=== PATIENT | female | born 1985 | race African-American/Black ===

== ENCOUNTER 2017-08-21 18:21 | Emergency (ER) | payer MEDICAID ==
[~2017-08-21] VITALS: Ht 149.9 cm; Wt 75.0 kg
[2017-08-21 18:43] VITALS: TEMP 97.9
[2017-08-21] MEDS ORDERED: KEPPRA250 MG PO (18:57)
[2017-08-21] MEDS ORDERED: LIPITOR 40MG TA40 MG PO (18:57)
[2017-08-21] MEDS ORDERED: PEPCID 20MG TAB20 MG PO (18:58)
[2017-08-21] MEDS ORDERED: TOPROL XL 50MG50 MG PO (18:59)
[2017-08-21 19:42] LABS: BASO % 0.4 % (0.0-2.0); EOS # 0.1 (0.0-0.7); EOS % 1.2 % (0-4.0); GRAN # 4.3 (1.4-6.5); GRAN % 64.7 % (42.2-75.2); LYMPH # 1.7 (1.2-3.4); LYMPH % 25.3 % (20.0-51.0); MEAN CELL VOLUME 79 fl (80.0-100.0); MEAN CORPUSCULAR HGB CONC 31 g/dl (33.0-37.0); MEAN PLATELET VOLUME 10.3 fl (7.4-10.4); MONO # 0.6 (0.1-0.6); MONO % 8.3 % (1.7-9.3); PLATELET COUNT 188 K/mm3 (130-400); RED BLOOD COUNT 3.93 M/mm3 (4.10-5.30); REDCELL DISTRIBUTION WIDTH-CV 18.6 % (11.5-14.5)
[2017-08-21 19:52] LABS: HEMATOCRIT 31.1 % (37.0-47.0); HEMOGLOBIN 9.7 g/dl (12.5-16.0); MEAN CORPUSCULAR HEMOGLOBIN 25 pg (27.0-31.0)
[2017-08-21 19:57] LABS: ALBUMIN 3.6 gm/dL (3.5-5.0); BILIRUBIN,TOTAL 0.9 mg/dL (0.0-1.0); CALCIUM 8.6 mg/dL (8.4-10.2); CREATININE, serum 0.75 mg/dL (0.52-1.25); TOTAL PROTEIN 8.4 gm/dL (6.4-8.2)
[2017-08-21] MEDS ORDERED: FLEXERIL 1010 MG/TAB PO (21:40)
[2017-08-21] MEDS ORDERED: NEXIUM 20MG20 MG PO (21:45)
[2017-08-21 21:57] VITALS: BP 125/74; PULSE 59
== END 2017-08-21 22:05 | disposition home or self-care (01) ==
LOC: COL.ER 18:21
PROVIDERS: Emergency Medicine
DX: S16.1XXA Strain of muscle, fascia and tendon at neck level, initial encounter (principal); R11.0 Nausea; I10 Essential (primary) hypertension; X58.XXXA Exposure to other specified factors, initial encounter
CPT/HCPCS: J1170; J2550

== ENCOUNTER 2017-08-26 12:59 | Emergency (ER) | payer MEDICAID ==
[~2017-08-26] VITALS: Ht 149.9 cm; Wt 81.8 kg
[~2017-08-26 12:59] MED LIST: FLEXERIL 1010 MG/TAB PO; KEPPRA250 MG PO; LIPITOR 40MG TA40 MG PO; NEXIUM 20MG20 MG PO; PEPCID 20MG TAB20 MG PO; TOPROL XL 50MG50 MG PO
[2017-08-26 13:09] VITALS: BP 131/72; PULSE 90; TEMP 98.5
[2017-08-26] MEDS ORDERED: DORYX100 PO (14:08)
[2017-08-26] MEDS ORDERED: DOXYCYCLINE HY100 MG PO (14:12)
[2017-08-26] MEDS ORDERED: TESSALON PERLE200 MG PO (14:16)
== END 2017-08-26 14:38 | disposition home or self-care (01) ==
LOC: COL.ER 12:59
DX: T81.31XA Disruption of external operation (surgical) wound, not elsewhere classified, initial encounter (principal); Z95.2 Presence of prosthetic heart valve; Z88.0 Allergy status to penicillin; Z88.6 Allergy status to analgesic agent